=== PATIENT | male | born 1960 | race Caucasian/White ===

== ENCOUNTER 2016-09-04 17:08 | Emergency (ER) | payer OTHER ==
[2016-09-04 17:26] VITALS: BP 125/84
--- NOTE | 2016-09-04 17:30 | UC ---
Skin Complaint HPI - History of Current Complaint Stated Complaint: SKIN COMPLAINT Hx Obtained From: Patient Onset/Duration: Sudden Onset - Father diagnosed with scabies, has been in close contact. Would like to be treated., Lasting Weeks - 3 Current Severity: None - doesn't have any symptoms. Aggravating: Nothing Alleviating: Nothing Associated Signs & Symptoms: Positive: Negative Related History: Other: - exposure to scabies. - Allergy/Home Medications Allergies/Adverse Reactions: Allergies Allergy/AdvReac Type Severity Reaction Status Date / Time No Known Allergies Allergy Verified 06/13/15 19:04 Review of Systems All Other Systems Reviewed And Are Negative: Yes PMH/Surg Hx/FS Hx/Imm Hx Previously Healthy: Yes - Surgical History Surgical History: Yes Surgery Procedure, Year, and Place: VASECTOMY - Family History Known Family History: Positive: Hypertension Negative: Cardiac Disease, Diabetes - Social History Occupation: Employed Full-time Lives: With Family Alcohol Use: Occasionally Substance Use Type: None Smoking Status (MU): Light Every Day Tobacco Smoker Type: Cigarettes Amount Used/How Often: 1/2 ppd Length of Time of Smoking/Using Tobacco: quit 5 days ago Household Exposure Type: Cigarettes Cessation Counseling: Patient Advised to Stop - Immunization History Most Recent Influenza Vaccination: [id number] Most Recent Tetanus Shot: OVER 5 YEARS AGO Physical Exam Triage Information Reviewed: Yes Appearance: Well-Appearing, No Pain Distress, Well-Nourished Vital Signs Reviewed: Yes Eyes: Positive: Conjunctiva Clear ENT: Positive: Pharynx normal, TMs normal Dental Exam: Normal Neck exam: Normal Respiratory Exam: Normal Cardiovascular Exam: Normal Musculoskeletal Exam: Normal Neurological Exam: Normal Psychological Exam: Normal Skin Exam: Normal Course/Dx - Differential Diagnoses - Skin Complaint Differential Diagnoses: Eczema, Scabies, Tick Born Illness - Diagnoses Provider Diagnoses: Scabies exposure. Discharge - Discharge Plan Condition: Stable Disposition: HOME Prescriptions: Permethrin [Elimite] 5 % TOPICAL BEDTIME #120 gm Patient Education Materials: Scabies (ED), Permethrin (On the skin)
== END 2016-09-04 17:51 | disposition home or self-care (01) ==
LOC: UCCORT 17:08
DX: B86 Scabies (principal); F17.210 Nicotine dependence, cigarettes, uncomplicated
CPT/HCPCS: 99212; G0463

== ENCOUNTER 2016-11-15 08:29 | Day surgery (SDC) | payer OTHER ==
[~2016-11-15 08:29] MED LIST: Buffered Lidocaine 0.9% SYRIN* 5 ML/SYR SYRINGE INTRADERM ONE; Dexamethasone IV* 4 MG/ML 1 ML (4 MG) ONE; Famotidine IV* 10 MG/ML 2 ML (20 mg) IV ONE; Ketorolac INJ* 30 MG/ML 1 ML VIAL ONE; Lidocaine 2% PF * 5 ML VIAL ONE; Midazolam* 1 MG/ML 5 ML VIAL (5 MG) ONE; Ondansetron INJ* 2 MG/ML VIAL ONE; Propofol* 10 MG/ML 20 ML BTL IV PUSH ONE; fentaNYL* 50 MCG/ML 2 ML VIAL (100 MCG VIAL) ONE
[2016-11-15] MEDS ORDERED: fentaNYL* 50 MCG/ML 2 ML VIAL (100 MCG VIAL) ONE (08:40)
[2016-11-15] MEDS ORDERED: Famotidine IV* 10 MG/ML 2 ML (20 mg) ONE (08:57)
[2016-11-15] MEDS ORDERED: ceFAZolin 2 GM PREMIX (*) 50 ML IVPB ONE (08:57)
[2016-11-15] MEDS ORDERED: Buffered Lidocaine 0.9% SYRIN* 5 ML/SYR SYRINGE ONE (08:58)
[2016-11-15] MEDS ORDERED: Succinylcholine* 20 MG/ML 10 ML VIAL ONE (10:30)
[2016-11-15] MEDS ORDERED: Bupivacaine 0.25% SDV* 30 ML ONE (10:50)
[2016-11-15] MEDS ORDERED: Rocuronium* 10 MG/ML VIAL ONE (10:58)
[2016-11-15] MEDS ORDERED: Labetalol IV* 5 MG/ML 20 ML VIAL ONE (11:55)
[2016-11-15] MEDS ORDERED: DiMENhydriNATE IV* 50 MG/ML VIAL IV PUSH PRN (12:22)
[2016-11-15] MEDS ORDERED: HYDROmorphone* 1 MG/ML 1 ML CARPUJECT IV PRN (12:22)
[2016-11-15] MEDS ORDERED: oxyCODONE TAB* 5 MG TAB PO PRN (12:22)
[2016-11-15] MEDS ORDERED: Acetaminophen TAB* 325 MG PO PRN (12:22)
[2016-11-15] MEDS ORDERED: Labetalol IV* 5 MG/ML 20 ML VIAL IV PUSH PRN (12:23)
[2016-11-15] MEDS ORDERED: oxyCODONE/Acetamin 5/325 MG* TAB PO PRN (13:12)
[2016-11-15] MEDS ORDERED: Acetaminophen TAB* 325 MG ONE (14:56)
[2016-11-15 15:01] VITALS: BP 120/76
--- NOTE | 2016-11-16 13:22 | OP ---
CC: Fermin Bullard MD * DATE OF OPERATION: 11/15/16 - [facility] DATE OF : 56 SURGEON: Chivo Johnson MD SALESPERSON PIANOS AND ORGANS: SANDRA Eaton ANESTHESIOLOGIST: Precious Bazzi MD ANESTHESIA: General with local anesthesia. PRE-OP DIAGNOSIS: Bilateral inguinal hernias. POST-OP DIAGNOSIS: Bilateral direct inguinal hernias. OPERATIVE PROCEDURE: Totally extraperitoneal repair with mesh of bilateral direct inguinal hernias. ESTIMATED BLOOD LOSS: Minimal. SPECIMENS: None. COMPLICATIONS: None. WOUND CLASSIFICATION: 1. DESCRIPTION OF PROCEDURE: Written informed consent was obtained, and preoperative antibiotics were administered. Both groins were marked with indelible ink as well as initialed. The patient was taken to the operating room , placed in the supine position. Sequential compression devices and warming blanket and general anesthesia was administered. A Bower catheter was inserted. The abdomen and both groins were prepped and draped in the usual sterile fashion. Time-out verification was completed. Initially, a small transverse incision was made just to the right of midline below the umbilicus, carried down to the anterior rectus sheath on the right and the rectus muscle was identified and retracted laterally. The space just anterior to the rectus sheath was developed digitally and the Spacemaker balloon was inserted without difficulty down in the midline to the pubic tubercle. The Spacemaker balloon was then inflated with almost 20 squeezes of the bulb to develop the preperitoneal space without difficulty. The Spacemaker balloon was then removed and a 12 mm blunt port was inserted and the preperitoneal space was insufflated to 12 mmHg and the patient was placed in the Trendelenburg position. Two 5-mm ports were placed in the midline several fingerbreadths below the initial blunt port. The pubic tubercle and the Parker's ligament were identified and dissected on either side. Initially dissection commenced on the right side, I was able to identity the epigastric vessels as they ran anterior and on to the abdominal wall. The space lateral to the indirect ring was developed under the anterior abdominal wall out to the iliac crest. The iliopubic tract was identified. I was able to identify the peritoneal reflection laterally, followed this medially. There did not appear to be in an indirect inguinal hernia and the peritoneum was reflected cranially lateral to medially. The spermatic cords and the vas deferens were identified and protected from injury. It appeared that there was a direct space hernia just medial to the epigastric vessels and this was reduced without difficulty. The peritoneum was reflected back down in a similar fashion. Likewise, similar dissection on the left was commenced identifying the Parker's ligament, the epigastric vessels and thus developing the space laterally out to the iliac crest identifying the iliopubic tract and anterior abdominal wall. Similar to the right side, there was the peritoneal reflection identified laterally, it did not appear to be an indirect hernia and this was reflected back more along the retroperitoneum. Once again, there appeared to be a direct space hernia and the small sac was reduced down on to the floor of the retroperitoneum. Once I felt both dissections were adequate, a large mesh was placed initially on the right side. The large size preformed mesh was then placed on the right side and using the CapSure device, was tagged to the Parker's ligament medially and once on to the anterior abdominal wall to the left and the right of the epigastric vessels. The mesh sat nicely, it was secured to prevent any reflection of the peritoneum underneath, especially along the retroperitoneum, but covered the direct and indirect spaces nicely. Likewise, on the left side the preformed large mesh was then placed and was tacked to the Coopers' ligament, the anterior abdominal wall once medial and once lateral to the epigastric vessels and the mesh extended out towards the iliac crest nicely without wrinkling. Once this was complete, we were able to hold the mesh in place and the insufflation was released. Peritoneum seemed to come over nicely, it covered all the mesh without wrinkling. The ports were then removed. The anterior fascia was closed with interrupted 0 - Polysorb suture. All three incisions were closed with subcuticular 4-0 Polysorb suture. Steri-strips were applied. The patient tolerated the procedure well and was taken to the recovery room in stable condition. [id number]/[facility] #: [id number] [facility]ITALSnow
== END 2016-11-15 15:28 | disposition home or self-care (01) ==
LOC: OR 08:29
PROVIDERS: ATTEND Surgery
DX: K40.20 Bilateral inguinal hernia, without obstruction or gangrene, not specified as recurrent (principal); G25.81 Restless legs syndrome; Z85.828 Personal history of other malignant neoplasm of skin; Z87.891 Personal history of nicotine dependence
CPT/HCPCS: A9270-GY; C1776; C1781; J0330; J0690; J1100; J1885; J2250; J2405; J2704; J3010

== ENCOUNTER 2016-11-17 16:56 | Emergency (ER) | payer OTHER ==
[2016-11-17 18:25] VITALS: BP 146/91
--- NOTE | 2016-11-17 18:36 | UC ---
Complaint Male HPI - HPI Summary HPI Summary: he had hernia surgery two days ago by Dr. Johnson. He had harris placed. He had immediate burning and bleeding after harris was removed. he has had dysuria ever since. No fever, vomiting or back pain. he is passing gas and stool and has been able to eat. there is penile swelling and tenderness as well. 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 Negative: Diaphoresis, Back Pain, Constipation, Blood in Stool, Rectal Pain, Appetite, Nausea - Allergies/Home Medications Allergies/Adverse Reactions: Allergies Allergy/AdvReac Type Severity Reaction Status Date / Time No Known Allergies Allergy Verified 11/17/16 18:15 PMH/Surg Hx/FS Hx/Imm Hx Previously Healthy: No - hernia. - Surgical History Surgical History: Yes Surgery Procedure, Year, and Place: VASECTOMY. Double hernia surgery 11/15/16 - Family History Known Family History: Positive: Hypertension Negative: Cardiac Disease, Diabetes - Social History Lives: With Family Alcohol Use: Rare Alcohol Amount: 2 BEERS/MONTH Substance Use Type: None Smoking Status (MU): Light Every Day Tobacco Smoker Type: Cigarettes Amount Used/How Often: 1/2 PPD FOR 40 + YRS Length of Time of Smoking/Using Tobacco: 40+ YRS Have You Smoked in the Last Year: Yes When Did the Patient Quit Smoking/Using Tobacco: APR 2016 Household Exposure Type: Cigarettes - Immunization History Most Recent Influenza Vaccination: NONE 2017 Most Recent Tetanus Shot: UTD Review of Systems Gastrointestinal: Abdominal Pain Genitourinary: Dysuria, Hematuria All Other Systems Reviewed And Are Negative: Yes Physical Exam Triage Information Reviewed: Yes Appearance: Well-Appearing, No Pain Distress, Well-Nourished Vital Signs: Initial Vital Signs Temp 98 F 11/17/16 18:16 Pulse 60 11/17/16 18:16 Resp 18 11/17/16 18:16 BP 146/91 11/17/16 18:16 Pulse Ox 100 11/17/16 18:16 Vital Signs Reviewed: Yes Eye Exam: Normal ENT Exam: Normal Neck exam: Normal Respiratory Exam: Normal Cardiovascular Exam: Normal Abdominal Exam: Other - wounds clean dry and intact. abd softly distended. Penis shaft right side is bruised and tender and swollen. No testicular involvement. Musculoskeletal Exam: Normal Neurological Exam: Normal Psychological Exam: Normal Skin Exam: Normal Complaint Male Course/Dx - Course Course Of Treatment: traumatic harris insertion. he has had dysuria ever since the harris was removed. we will start cipro but this may not be infectious. possible false lumen created during catheterization. referal to urology provided. - Differential Dx/Diagnosis Differential Diagnosis/HQI/PQRI: Epididymitis, Priaprism, Paraphimosis, Prostatitis, Pyelonephritis, Testicular Torsion, Trauma, Ureteral Calculi, Urinary Tract Infection Provider Diagnoses: traumatic harris insertion. post op complication. hematuria. dysuria. Discharge - Discharge Plan Condition: Good Disposition: HOME Prescriptions: Ciprofloxacin TAB* [Cipro 500 MG TAB*] 500 mg PO BID #14 tab Referrals: Carmine Dey MD [Medical Doctor] -
--- NOTE | 2016-11-19 08:38 | UC ---
Progress - Progress Note Progress Note: neg urine culture stop cipro ensure urology f/u
== END 2016-11-17 18:49 | disposition home or self-care (01) ==
LOC: UCCORT 16:56
DX: T83.098A Other mechanical complication of other urinary catheter, initial encounter (principal); N99.89 Other postprocedural complications and disorders of genitourinary system; R30.0 Dysuria; R31.9 Hematuria, unspecified; F17.210 Nicotine dependence, cigarettes, uncomplicated
CPT/HCPCS: 81003; 87086; 99212; G0463

== ENCOUNTER 2017-08-25 15:00 | Inpatient (IN) | payer OTHER ==
--- NOTE | 2017-08-22 16:43 | HP ---
HISTORY AND PHYSICAL: DATE OF ADMISSION/SURGERY: 09/01/17 SURGEON: Jewell Mayorga MD * (DICTATED BY SANDRA BONILLA) PROCEDURE: Right total hip arthroplasty. CHIEF COMPLAINT: Right hip pain. HISTORY OF PRESENT ILLNESS: Mr. Alva is a 57-year-old gentleman with continued complaints of right hip pain. He has failed conservative management and elected to proceed with a right total hip arthroplasty, which is scheduled for 09/01/[address] Mayorga. PAST MEDICAL HISTORY: Basal cell carcinoma, restless leg syndrome. PAST SURGICAL HISTORY: Hernia repair. CURRENT MEDICATIONS: 1. Ropinirole 1 mg 1 to 2 tabs every evening. 2. Ibuprofen and Tylenol as needed. 3. Nicotine patch. ALLERGIES: None. FAMILY HISTORY: Cancer, blood clots and hypertension. SOCIAL HISTORY: He is a 57-year-old gentleman who lives with his . He smokes less than a pack a day. He uses occasional alcohol. Denies use of illicit drugs. REVIEW OF SYSTEMS: A complete 14-point review of systems was reviewed with the patient, it was all negative or noncontributory. PHYSICAL EXAMINATION GENERAL: He is well developed, well nourished, in no acute distress. VITAL SIGNS: He stands 67 inches tall, weighs 177 pounds. His blood pressure is 122/74, his heart rate is 76. HEENT: Normocephalic, atraumatic. NECK: Supple. No palpable lymph nodes. PULMONARY: Lungs are clear to auscultation bilaterally. CARDIO: Regular rate and rhythm. Strong S1, S2. ABDOMEN: Soft, nontender, nondistended. NEUROLOGICAL: He is alert and oriented x3. MUSCULOSKELETAL: Right lower extremity: The skin is intact. There are no open wounds or abrasions. He walks with an antalgic type gait favoring his right hip. He has decreased internal and external rotation of the right hip. 2 + dorsalis pedis pulses. Intact sensation and his lower extremity muscle group strengths are intact at 5/5. ASSESSMENT/PLAN: Mr. Alva is a 57-year-old gentleman with complaints of right hip pain secondary to end-stage osteoarthritis. He has failed conservative management and elected to proceed with a right total hip arthroplasty which is scheduled for 09/01/[address] Mayorga discussed the risks and benefits of the surgery at today's visit and all of his questions were answered. He will follow up with Dr. Mayorga 2 weeks after the surgery. SANDRA BONILLA [id number]/[facility] #: [id number] MTDSnow
[2017-08-31] MEDS ORDERED: Buffered Lidocaine 0.9% SYRIN* 5 ML/SYR SYRINGE INTRADERM ONE (10:23)
[2017-09-01] MEDS ORDERED: Ondansetron ODT TAB* 4 MG PO ONE (00:01)
[2017-09-01] MEDS ORDERED: Dexamethasone IV* 4 MG/ML 1 ML (4 MG) IV SLOW PU ONE (06:00)
[2017-09-01] MEDS ORDERED: Famotidine IV* 10 MG/ML 2 ML (20 mg) IV ONE (06:00)
[2017-09-01] MEDS ORDERED: Gabapentin CAP(*) 300 MG PO ONE (06:00)
[2017-09-01] MEDS ORDERED: celeCOXIB CAP* 200 MG PO ONE (06:00)
[2017-09-01] MEDS ORDERED: Acetaminophen IV 1GM/100ML * 1,000 MG/100 ML VIAL IVPB ONE (06:00)
--- OUTSIDE RECORDS SUMMARY | 2017-09-01 07:41 | XMS REPORT ---
:1960 External Reference #:[id number] Author Organization [facility] Address [address] [place] [address] Phone [phone] Care Team Providers Name Role Phone Fermin Bullard MD Primary Care Physician Unavailable Payers Type Date Identification Numbers Payment Provider Subscriber Commercial Expires: Policy Number: [id number] [employer]Yue Oneill 2014 PayID: [employer] [address] [place] [address] Commercial Policy Number: [id number] Lifetime Benefit Alicia One[employer] Group Number: [id number] [address] PayID: [place] [address] Problems Date Description Provider Status Onset: 07/07/2015 Basal cell carcinoma of skin of Rio Mack M.D. Active other parts of face Onset: 09/11/2015 Arthralgia of the pelvic region and Alixu MD Martín Active thigh Onset: 09/11/2015 Knee pain Akbar Resendiz MD Active Onset: 07/22/2017 Localized, primary osteoarthritis Jewell Mayorga M.D. Active of the pelvic region and thigh Onset: 07/25/2017 Hypertrophic condition of skin Rio Mack M.D. 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 No Do you have problems with snoring, day time fatigue? Snoring Allergies, Adverse Reactions, Alerts Date Description Reaction Status Severity Comments 06/10/2017 NKDA active Medications Medication Date Status Form Strength Qnty SIG Indications Ordering Provider Ropinirole Active Tablets 1mg take 1 Unknown HCL 000 and 1/2 to 2 tablets every evening Ibuprofen Active Tablets 200mg 4 tabs as Unknown 000 needed Tylenol Extra Active Tablets 500mg 2 by Unknown Strength 000 mouth as needed Does Not Know Hx Rio Costa 015 - Ruparelia, Medications. M.D. 016 Piroxicam Hx Capsules 20mg 30caps one 843.9 Gilbert 013 - capsule Veigel, po daily M.D. 015 with food Chantix Hx Tablets 1mg 60tabs 1 po bid Unknown Continuing 000 - Month Magen 015 Chantix 0 Hx Tablets 1mg 1 by Unknown 000 mouth twice a day Tylenol Hx Capsules 325mg 2 tablets Unknown 000 - every 4 hours as 018 needed for pain Nicotine Step Hx Patches 21mg/24HR 1 topical Unknown 1 000 - 24HR every day for 4-6 018 wks then taper (patient is cutting patch in half) Medications Administered in Office Medication Date Status Form Strength Qnty SIG Indications Ordering Provider Inj, Administered Injection Denilson S. Regadenoson, 018 Carrera, DO 0.1 MG FACC Technetium TC Administered Injection Denilson S. 99M 018 Carrera, DO Tetrofosmin, FACC Per Unit Dose Up To 40 Millicuries Vital Signs Date Vital Result Comment 08/22/2017 Height 67 inches 5'7" Weight 177.00 lb BP Systolic Sitting 122 mmHg BP Diastolic Sitting 74 mmHg Respiratory Rate 16 /min Body Temperature 98.0 F Pain Level 5 BMI (Body Mass Index) 27.7 kg/m2 07/25/2017 Height 67 inches 5'7" Weight 177.00 lb BP Systolic Sitting 128 mmHg BP Diastolic Sitting 68 mmHg Respiratory Rate 16 /min Pain Level 0 BMI (Body Mass Index) 27.7 kg/m2 07/22/2017 Height 67 inches 5'7" Weight 176.00 lb Heart Rate 85 /min BP Systolic Sitting 134 mmHg BP Diastolic Sitting 80 mmHg Respiratory Rate 16 /min Body Temperature 98.0 F Pain Level 6 BMI (Body Mass Index) 27.6 kg/m2 06/10/2017 Heart Rate 72 /min BP Systolic Sitting 130 mmHg BP Diastolic Sitting 84 mmHg Respiratory Rate 18 /min Body Temperature 97.5 F 05/17/2017 Weight 176.19 lb No shoes BP Systolic 120 mmHg Rue reg cuff BP Diastolic 70 mmHg Rue reg cuff BP Systolic Sitting 135 mmHg Lue reg cuff BP Diastolic Sitting 80 mmHg Lue reg cuff Respiratory Rate 14 /min 11/23/2016 Heart Rate 66 /min BP Systolic 126 mmHg BP Diastolic 82 mmHg Respiratory Rate 16 /min Body Temperature 97.3 F 10/26/2016 Height 67 inches 5'7" Weight 167.00 lb Heart Rate 68 /min BP Systolic 120 mmHg BP Diastolic 78 mmHg Respiratory Rate 16 /min Body Temperature 96.1 F BMI (Body Mass Index) 26.2 kg/m2 11/24/2015 Height 67 inches 5'7" Weight 165.00 lb BP Systolic Sitting 124 mmHg BP Diastolic Sitting 78 mmHg BMI (Body Mass Index) 25.8 kg/m2 09/11/2015 Height 67 inches 5'7" Weight 170.00 lb Heart Rate 84 /min BP Systolic Sitting 120 mmHg BP Diastolic Sitting 84 mmHg BMI (Body Mass Index) 26.6 kg/m2 07/07/2015 Heart Rate 80 /min BP Systolic Sitting 124 mmHg BP Diastolic Sitting 80 mmHg 10/14/2014 Weight 177.00 lb Heart Rate 80 /min BP Systolic Sitting 136 mmHg BP Diastolic Sitting 80 mmHg 04/27/2012 Height 67 inches 5'7" Weight 175.00 lb BP Systolic Sitting 112 mmHg BP Diastolic Sitting 76 mmHg BMI (Body Mass Index) 27.4 kg/m2 Results Test Date Test Result H/L Range Note Laboratory test 07/14/2015 Surgical Pathology SEE RESULT BELOW 1 finding 1 SEE RESULT BELOW Name: JAYDEN ALVA : [address]: Rio Mack MD Acct: [id number] Unit: [id number] AGE: 55 Location: [facility] Re07/14/15 SEX: M Status: REG REF SPEC: [id number] YOAN: 07/14/15-1515 [facility] [address]: Rio Mack MD REQ: [id number] RECD: 07/14/15 STATUS: SOUT _ ORDERED: LEVEL IV FINAL DIAGNOSIS Skin, left cheek, excision: -- Basal cell carcinoma, superficial and nodular type. -- Deep, tip, and lateral margins are clear. PRE-OPERATIVE DIAGNOSIS Basal cell carcinoma GROSS DESCRIPTION The specimen is received in formalin with no source identified and a requisition labeled, Left Cheek Lesion, and consists of a 2.6 x 1.3 cm hunter hairbearing unoriented skin ellipse excised to a depth of 0.3 cm. The specimen is inked, serially sectioned and entirely submitted in cassettes A through C to include ellipse ends in cassette A. Signed (signature on file) Fanny Brown MD 1348 END OF REPORT * ML=Testing performed at Main Lab DEPARTMENT OF PATHOLOGY, [address] [place] [address] Haroon Ahuja M.D. Director [facility] # [id number] Procedures Date CPT Code Description Status 05/25/2017 92441 Stress Test Completed 05/25/2017 35918 Myocardial Perfusion Imaging Tomographic (Spect) Completed Multiple Studies 05/17/2017 60772 EKG Tracing & Interpretation Completed 11/15/2016 78963 Laparoscopy, Surgical Repair Initial Inguinal Hernia Completed 11/15/2016 10823 Laparoscopy, Surgical Repair Initial Inguinal Hernia Completed 07/14/2015 01189 Excise Malig Lesion > 4CM Face/Ear/Eyelid/Nose/Lip Completed Encounters Type Date Location Provider CPT E/M Dx Office Visit 07/25/2017 [facility], [address]28 L91.9 2:15p AT [facility] Office Visit 07/22/2017 [facility] Jewell Mayorga M.D. 33013 M16.11 2:00p [facility] M25.551 M25.552 M16.12 Office Visit 06/10/2017 1:45p [facility] Chivo Johnson, 01915 R10.31 Of [facility] R10.32 Office Visit 05/17/2017 9:00a [facility] [place] [address] R07.9 [facility] FACC F17.201 Office Visit 10/26/2016 8:30a [facility] Chivo Johnson, 56379 K40.20 Of [facility] LEAL Office Visit 11/24/2015 3:45p [facility] Rio Mack, 95037 C44.[address] [facility] Office Visit 09/11/2015 3:15p [facility] [place] [address] M25.551 Communications Officer AT [facility] M25.561 Office Visit 07/07/2015 4:00p [facility], 38357 C44.[address] [facility] Office Visit 10/14/2014 3:30p [facility], 70638 173.[address] [facility] [address] [facility] Office Visit 04/27/2012 3:30p [facility] Gutierrez M.D. 75127 843.9 [facility] AT [facility] Plan of Care Future Appointment(s):09/14/2017 8:45 am - Jewell Mayorga M.D. at [facility]09/01/2017 10:30 am - Sundar Macedo PA-C at [facility]09/01/2017 10:30 am - SANDRA Suero at [facility]09/01/2017 10:30 am - Jewell Mayorga M.D. at [facility]08/22/2017 - Jewell Mayorga M.D.L91.9 Hypertrophic disorder of the skin, unspecifiedFollow up:Follow up: 2 weeks after icjxuxgV78.551 Pain in right hip
[2017-09-01] MEDS ORDERED: Dexamethasone IV* 4 MG/ML 1 ML (4 MG) ONE (08:08)
[2017-09-01] MEDS ORDERED: celeCOXIB CAP* 100 MG ONE (08:09)
[2017-09-01] MEDS ORDERED: Ondansetron ODT TAB* 4 MG ONE (08:09)
[2017-09-01] MEDS ORDERED: Gabapentin CAP(*) 300 MG ONE (08:09)
[2017-09-01] MEDS ORDERED: ceFAZolin 2 GM PREMIX (*) 2 GM/50 ML BAG IVPB ONE (08:09)
[2017-09-01] MEDS ORDERED: Famotidine IV* 10 MG/ML 2 ML (20 mg) ONE (08:09)
[2017-09-01] MEDS ORDERED: Acetaminophen IV 1GM/100ML * 100 ML ONE (08:13)
[2017-09-01] MEDS ORDERED: Levalbuterol 0.63MG/3ML NEB* UNIT OF USE INH ONE ×2 (08:59→09:09)
[2017-09-01] MEDS ORDERED: ROPIVACAINE 5 MG/ML 30 ML BTL (0.5%) ONE (09:03)
[2017-09-01] MEDS ORDERED: Midazolam* 1 MG/ML 5 ML VIAL (5 MG) ONE ×2 (09:06→09:59)
[2017-09-01] MEDS ORDERED: fentaNYL* 50 MCG/ML 2 ML VIAL (100 MCG VIAL) ONE (09:06)
[2017-09-01] MEDS ORDERED: Bupivacaine 0.5% PF 10 ML VIAL INJ ONE (09:06)
[2017-09-01] MEDS ORDERED: Lidocaine 2% PF * 5 ML VIAL ONE (09:06)
[2017-09-01] MEDS ORDERED: Ropivacaine (OR use only) 2 MG/ML 10 ML ONE (09:19)
[2017-09-01] MEDS ORDERED: Ondansetron ODT TAB* 4 MG PO PRN (10:32)
[2017-09-01] MEDS ORDERED: DiMENhydriNATE IV* 50 MG/ML VIAL IV PUSH PRN (10:32)
[2017-09-01] MEDS ORDERED: Naloxone* 0.4 MG/ML 1 ML VIAL IV PRN (10:32)
[2017-09-01] MEDS ORDERED: HYDROmorphone INJ* 0.5 MG/0.5 ML SYRINGE IV PRN (10:32)
[2017-09-01] MEDS ORDERED: fentaNYL* 50 MCG/ML 2 ML VIAL (100 MCG VIAL) IV PRN (10:32)
[2017-09-01] MEDS ORDERED: oxyCODONE TAB* 5 MG TAB PO PRN (12:17)
[2017-09-01] MEDS ORDERED: Polyethylene Glycol 3350* 17 GM PACKET PO PRN (12:17)
[2017-09-01] MEDS ORDERED: Ondansetron INJ* 2 MG/ML VIAL IV PRN (12:17)
[2017-09-01] MEDS ORDERED: Cyclobenzaprine TAB* 10 MG PO PRN (12:17)
[2017-09-01] MEDS ORDERED: Magnesium Hydroxide LIQ* 30 ML UDC PO PRN (12:17)
[2017-09-01] MEDS ORDERED: diPHENhydraMINE IV* 50 MG/ML 1 ml VIAL (BENADRYL) IV PRN (12:17)
[2017-09-01] MEDS ORDERED: Morphine VIAL* 4 MG/ML VIAL (1 ml vial) IV PRN (12:17)
[2017-09-01] MEDS ORDERED: Acetaminophen TAB* 325 MG PO PRN (12:17)
[2017-09-01] MEDS ORDERED: Bisacodyl SUPP* 10 MG SUPP PR PRN (12:17)
--- NOTE | 2017-09-01 13:00 | RAD ---
INDICATION: Right hip arthroplasty COMPARISON: Right hip September 01, 2017 TECHNIQUE: A single supine view the pelvis is submitted FINDINGS: There is right hip arthroplasty. Both femoral and acetabular components are well seated. Advanced osteoarthritis about the left hip with mild deformity is again noted. IMPRESSION: THE RIGHT HIP PROSTHESIS APPEARS NORMALLY SEATED.
--- NOTE | 2017-09-01 13:05 | RAD ---
Indication: Postop RIGHT total hip replacement Comparison: Intraoperative exam of the same date. Technique: Supine AP pelvis and proximal femurs and dedicated AP and crosstable lateral views RIGHT hip. Report: RIGHT total hip prosthesis in place with anatomic alignment. No periprosthetic fracture evident. Overlying soft tissue edema and subcutaneous emphysema. Severe osteoarthritis of the LEFT hip noted. Surgical clips reflecting previous ventral hernia repair and vasectomy noted. IMPRESSION: #. Unremarkable immediate postop appearance of the RIGHT total hip replacement.
--- NOTE | 2017-09-01 15:08 | RAD ---
Indication: Right hip replacement. Single view of the right hip demonstrates intraoperative control film demonstrates femoral reamer and acetabular cup in place. IMPRESSION: Intraoperative control films for right hip replacement.
[2017-09-01] MEDS: Nicotine PATCH 21 MG/24 HR* PATCH TRANSDERM SCH (16:48)
[2017-09-01] MEDS: oxyCODONE/Acetamin 5/325 MG* TAB PO PRN ×2 (16:55→23:42)
[2017-09-01] MEDS ORDERED: Warfarin TAB(*) 6 MG PO ONE (17:00)
[2017-09-01] MEDS ORDERED: ROPINIROLE HCL PO SCH (18:00)
[2017-09-01] MEDS: ceFAZolin 1 GM in Dextrose (*) 1 GM/50 ML BAG IVPB SCH (18:26)
[2017-09-01] MEDS: Docusate CAP* 100 MG PO SCH (20:48)
[2017-09-01] MEDS: Ropinirole TAB* 0.5 MG TAB PO SCH (20:48)
[2017-09-01] MEDS: Magnesium Hydroxide LIQ* 30 ML UDC PO SCH (20:49)
[2017-09-01] MEDS: Nicotine Patch Removal NOTE PATCH OFF SCH (20:50)
[2017-09-02] MEDS: ceFAZolin 1 GM in Dextrose (*) 1 GM/50 ML BAG IVPB SCH ×2 (02:37→10:06)
--- NOTE | 2017-09-02 04:12 | OP ---
DATE OF OPERATION: 09/01/17 - ROOM #350 DATE OF : 56 SURGEON: Jewell Mayorga MD BANK CLERK: SANDRA Russell. Mr. Macedo did help throughout the procedure with preparation of the leg, wound retraction, manipulation of the hip, and wound closure. ANESTHESIOLOGIST: Dr. Treviño. ANESTHESIA: Spinal. PRE-OP DIAGNOSIS: Severe end-stage degenerative osteoarthritis of the right hip joint. POST-OP DIAGNOSIS: Severe end-stage degenerative osteoarthritis of the right hip joint. OPERATIVE PROCEDURE: Right total hip arthroplasty. BRIEF HISTORY/INDICATION: Mr. Alva is a 57-year-old gentleman with years of increasingly severe right hip pain. He failed conservative treatment with anti-inflammatories, pain medication, and physical therapy. Radiographs showed bone-on- bone arthritis. Due to continued pain and decreased quality of life, he elected to undergo right total hip arthroplasty. Informed consent was obtained from the patient. He understood the risks of surgery included but were not limited to bleeding, infection, damage to nearby structures, continued pain, need for further surgery, intraoperative fracture, nerve palsy, hardware failure or loosening, dislocation, leg length discrepancy, stroke, heart attack , blood clot, and . He wished to proceed. INTRAOPERATIVE FINDINGS: Intraoperatively, the patient was noted to have severe end-stage arthritis with significant osteophyte formation. He had full- thickness loss of cartilage in the femoral head and acetabulum. He had extensive loose bodies in the hip capsule and joint. COMPLICATIONS: None. ESTIMATED BLOOD LOSS: 200 cc. SPECIMENS: Femoral head and acetabular reaming sent to Pathology. HARDWARE USED: This is uncemented Melvin total hip hardware. For the cup, a Tritanium hemispherical cluster hole shell 58F, single 20-mm torque 6.5 cancellous bone screw. For the liner, a Trident X3 0-degree polyethylene insert 40F. For the stem, an Accolade TMZF size 4 with a 127-degree neck. For the head, a Biolox delta ceramic V40, 40 -2.5 head. DESCRIPTION OF PROCEDURE: Mr. Alva was identified in the preanesthesia unit. His right lower extremity was marked as the correct operative side. Informed consent was signed and placed in the chart. The patient was taken to the operating room and placed under spinal anesthesia. A Bower catheter was placed. The patient was placed in the left lateral decubitus position on the peg board. All bony prominences were well-padded. Right lower extremity was prepped and draped in the usual sterile fashion. Preop time-out was made to correctly identify the patient's side and site. Appropriate perioperative antibiotics were given within 1 hour of incision. A 12-cm posterior hip incision was made with a 10-blade and carried down to the lateral fascial layer. A new 10-blade was used to make an incision in the lateral fascial layer. Charnley retractor was placed. The piriformis and conjoint tendons were visualized and elevated off the posterolateral femur using electrocautery. Electrocautery was then used to make a standard posterolateral capsular flap and this was also tagged with #5 Ethibond. The hip was carefully dislocated. Lesser troch to the center of the femoral head measured 62 mm. Oscillating saw was used to make the appropriate femoral neck cut. The femoral head was carefully removed. The femur was retracted anteriorly. After appropriate placement of retractors, the acetabulum was well visualized. A long-handled knife was used to sharply remove any remaining labrum from the acetabular rim. The acetabulum was sequentially reamed up to a size 57. A 57 reamer established to the subchondral bleeding bone bed. A 57 trial had good fit. Final implant chosen was a Tritanium cluster hole shell 58F. This was impacted into the acetabulum without any difficulty. The shell was noted to be excellent with satisfactory anteversion and abduction angle. The 20-mm torque cancellous bone screw was placed in the supero-posterior quadrant for extra stability. Liner chosen was a Trident X3 0-degree polyethylene insert 40F. This was impacted into the acetabulum without difficulty. Stability of the liner was checked and rechecked and noted to be stable. Next, attention was turned to preparation of the femoral canal. A canal finder was used to enter the proximal femur. Proximal femoral canal was broached sequentially up to a size 4. Size 4 broach had excellent fit and appropriate anteversion. A 127 neck trial was chosen as well as the 40 +0 head trial. Lesser troch to the center of the femoral head measured 55 mm; therefore, a - 2.5 head trial was chosen. Lesser troch to the center of the femoral head measured approximately 63 mm. The hip was reduced and taken through a range of motion. The hip was stable in all positions. There was appropriate soft tissue tension and leg length. The hip was dislocated. All trials were carefully removed. Final implant chosen was an Accolade TMZF size 4 with a 127-degree neck angle. A 40 -2.5 Biolox delta ceramic femoral head with a -2.5 adaptor sleeve was impacted on to the femoral neck. Lesser troch to the center of the femoral head final measurement was 63 mm. The hip was reduced and taken through a range of motion. The hip was stable in all positions. There was good soft tissue tension and appropriate leg length. The hip was copiously irrigated with sterile saline. Previously tagged capsule and tendons were reapproximated to the posterolateral femur through two trochanteric drill holes. The lateral fascial layer was closed using interrupted #1 Vicryls. The rest of the incision was closed in a layered fashion using 0 and 2-0 Vicryls. Skin was closed using running 3-0 Monocryl suture and Dermabond. Sterile Adaptic, 4x4s, and paper tape were used to cover the incisions. The patient's anesthesia was reversed without difficulty. He was taken to the PACU in stable condition. Intended weightbearing will be weightbearing as tolerated. Intended DVT prophylaxis will be Coumadin with a Lovenox bridge. [id number]/[facility] #: [id number] MAXINE
[2017-09-02] MEDS: oxyCODONE/Acetamin 5/325 MG* TAB PO PRN ×4 (06:05→20:20)
[2017-09-02 06:07] LABS: Hematocrit 33 % (42-52); Mean Platelet Volume 8.8 um3 (7.4-10.4); Platelet Count 230 10^3/ul (150-450)
[2017-09-02 06:12] LABS: INR 1.04 (0.77-1.02)
[2017-09-02 06:24] LABS: EGFR Non-African American 82.1 (>60)
[2017-09-02] MEDS: Magnesium Hydroxide LIQ* 30 ML UDC PO SCH ×2 (07:56→20:20)
[2017-09-02] MEDS: Docusate CAP* 100 MG PO SCH ×2 (07:56→20:20)
[2017-09-02] MEDS: Nicotine PATCH 21 MG/24 HR* PATCH TRANSDERM SCH (07:57)
[2017-09-02] MEDS: Ropinirole TAB* 0.5 MG TAB PO SCH ×2 (07:57→20:21)
--- NOTE | 2017-09-02 09:11 | PN ---
Progress Note - Progress Note Date of Service: 09/02/17 SOAP: Subjective: Mr. Alva is s/p R MAUDE on 09/01/17 POD #1. Patient sitting comfortable in chair, able to stand on own. Very concerned with being discharged to home as out of town, would like to be in SNF initially. Objective: Vital Signs Temp 98.4 F 09/02/17 07:32 Pulse 73 09/02/17 07:32 Resp 18 09/02/17 07:53 BP 111/60 09/02/17 07:32 Pulse Ox 98 09/02/17 07:32 Intake & Output 09/01/17 09/02/17 09/02/17 18:59 06:59 18:59 Intake Total 2530 1044 Output Total 1900 950 Balance 630 94 Weight 177 lb Intake: IV Fluids 1950 684 ABX - CEFAZOLIN 55 CEFAZOLIN 2GM IV 50 LR 1900 629 Oral 580 360 Output: Bower 1900 950 Laboratory Results - last 24 hr 09/02/17 09/02/17 09/02/17 05:19 05:19 05:19 Hgb 11.0 L Hct 33 L Plt Count 230 MPV 8.8 INR (Anticoag Therapy) 1.04 H Sodium 137 Potassium 4.2 Chloride 108 Carbon Dioxide 26 Anion Gap 3 BUN 14 Creatinine 0.94 Est GFR ( Amer) 99.4 Est GFR (Non-Af Amer) 82.1 BUN/Creatinine Ratio 14.9 Glucose 119 H Calcium 8.5 L General: WN, WD, NAD, AO, able to stand without assistance for dressing inspection. RLE: Dressing C/D/I, no erythema, warmth, swelling proximal or distal to dressing. 2+ DP pulse, +DF/PF. SITLT. Assessment: S/P R MAUDE with Dr. Mayorga on 09/01/17, POD #1 Plan: - Continue PT/OT with hip precautions - DVT Lovenox/Coumadin INR 1.04, 8 mg tonight - D/C to SNF planned for Tuesday - Continue pain management
[2017-09-02] MEDS: Enoxaparin(*) 30 MG/0.3 ML SYR SUBCUT SCH (12:07)
[2017-09-02] MEDS: Nicotine Patch Removal NOTE PATCH OFF SCH (20:27)
[2017-09-03] MEDS: oxyCODONE/Acetamin 5/325 MG* TAB PO PRN ×4 (03:10→20:18)
[2017-09-03 06:05] LABS: Hematocrit 33 % (42-52); Hemoglobin 10.8 g/dl (14.0-18.0); Mean Platelet Volume 9.2 um3 (7.4-10.4); Platelet Count 236 10^3/ul (150-450)
[2017-09-03 06:14] LABS: INR 1.14 (0.77-1.02)
--- NOTE | 2017-09-03 08:31 | PN ---
Progress Note - Progress Note Date of Service: 09/03/17 SOAP: Subjective: POD #2 Right MAUDE, doing well. Pain controlled. Denies CP/SOB, f/c, n/v or calf pain Objective: Vitals: Temp Pulse Resp BP Pulse Ox 97.8 F 97 16 118/70 96 09/03/17 07:48 09/03/17 07:48 09/03/17 07:48 09/03/17 07:48 09/03/17 07:48 Gen: A&Ox3, NAD at rest sitting in chair Right Hip: Incision C/D/I, no ecchymosis or erythema. Thigh soft, minimal ttp. + f/e at ankle and MTPs, N/V intact Labs: Laboratory Results - last 24 hr 18 09/03/17 05:12 05:12 Hgb 10.8 L Hct 33 L Plt Count 236 MPV 9.2 INR (Anticoag Therapy) 1.14 H Assessment: POD #2 Right MAUDE Plan: Pt awaiting placement in [facility] Tuesday Cont PT/OT, posterior hip precautions Lovenox bridge until INR therapeutic Coumadin 8mg tonight
[2017-09-03] MEDS: Nicotine PATCH 21 MG/24 HR* PATCH TRANSDERM SCH (08:32)
[2017-09-03] MEDS: Magnesium Hydroxide LIQ* 30 ML UDC PO SCH ×2 (08:35→20:15)
[2017-09-03] MEDS: Ropinirole TAB* 0.5 MG TAB PO SCH ×2 (08:35→20:18)
[2017-09-03] MEDS: Docusate CAP* 100 MG PO SCH ×2 (08:36→20:18)
[2017-09-03 09:10] LABS: Urine Appearance Clear; Urine Blood Negative (Negative); Urine Color Yellow; Urine Ketones Negative (Negative); Urine Protein Negative (Negative); Urine Specific Gravity 1.014 (1.010-1.030); Urine Urobilinogen Negative (Negative)
[2017-09-03] MEDS: Enoxaparin(*) 30 MG/0.3 ML SYR SUBCUT SCH (12:23)
[2017-09-03] MEDS ORDERED: Warfarin TAB(*) 4 MG PO ONE (17:00)
[2017-09-03] MEDS: Nicotine Patch Removal NOTE PATCH OFF SCH (20:20)
[2017-09-03] MEDS ORDERED: Magnesium Hydroxide LIQ* 30 ML UDC PO PRN (23:00)
[2017-09-04] MEDS: oxyCODONE/Acetamin 5/325 MG* TAB PO PRN ×3 (00:12→20:18)
[2017-09-04 05:45] LABS: Hematocrit 32 % (42-52); Hemoglobin 10.7 g/dl (14.0-18.0); Mean Platelet Volume 8.8 um3 (7.4-10.4); Platelet Count 245 10^3/ul (150-450)
[2017-09-04 05:48] LABS: INR 1.19 (0.77-1.02)
--- NOTE | 2017-09-04 07:53 | PN ---
Progress Note - Progress Note Date of Service: 09/04/17 SOAP: Subjective: POD #3 Right MAUDE. Doing very well, minimal pain. Able to ambulate with walker independently. Denies CP/SOB, calf pain, f/c or n/v. Objective: Vitals: Temp Pulse Resp BP Pulse Ox 98.6 F 88 16 117/76 95 09/04/17 04:19 09/04/17 04:19 09/04/17 04:19 09/04/17 04:19 09/04/17 04:19 Gen: A&Ox3, NAD at rest sitting in chair Right hip: Dressing C/D/I, mild edema to thigh but soft, NT. +f/e at ankles and MTPs, N/V intact Labs: Laboratory Results - last 24 hr 06/18 09/04/17 09/04/17 08:45 04:56 04:56 Hgb 10.7 L Hct 32 L Plt Count 245 MPV 8.8 INR (Anticoag Therapy) 1.19 H Urine Color Yellow Urine Appearance Clear Urine pH 6.0 Ur Specific [place] 1.014 Urine Protein Negative Urine Ketones Negative Urine Blood Negative Urine Nitrate Negative Urine Bilirubin Negative Urine Urobilinogen Negative Ur Leukocyte Esterase Negative Urine Glucose Negative Assessment: POD #3 Right MAUDE Plan: D/C to [facility] tomorrow Lovenox/Coumadin for DVT ppx INR 1.19 today, Coumadin 8mg tonight F/U with Dr. Mayorga 10-14 days post op
[2017-09-04] MEDS: Nicotine PATCH 21 MG/24 HR* PATCH TRANSDERM SCH (09:23)
[2017-09-04] MEDS: Ropinirole TAB* 0.5 MG TAB PO SCH ×2 (09:23→20:18)
[2017-09-04] MEDS: Docusate CAP* 100 MG PO SCH ×2 (09:23→19:36)
[2017-09-04] MEDS: Enoxaparin(*) 30 MG/0.3 ML SYR SUBCUT SCH (12:38)
[2017-09-04] MEDS: Warfarin TAB(*) 4 MG PO SCH (17:43)
[2017-09-04] MEDS: Nicotine Patch Removal NOTE PATCH OFF SCH (20:21)
[2017-09-05 05:49] LABS: Hematocrit 34 % (42-52); Hemoglobin 11.5 g/dl (14.0-18.0); Mean Platelet Volume 8.6 um3 (7.4-10.4); Platelet Count 270 10^3/ul (150-450)
[2017-09-05] MEDS: oxyCODONE/Acetamin 5/325 MG* TAB PO PRN ×3 (06:04→21:01)
[2017-09-05 06:49] LABS: INR 1.93 (0.77-1.02)
[2017-09-05] MEDS: Ropinirole TAB* 0.5 MG TAB PO SCH ×2 (07:49→21:01)
[2017-09-05] MEDS: Nicotine PATCH 21 MG/24 HR* PATCH TRANSDERM SCH (07:49)
[2017-09-05] MEDS: Docusate CAP* 100 MG PO SCH ×2 (07:49→21:01)
--- NOTE | 2017-09-05 08:02 | PN ---
Progress Note - Progress Note Date of Service: 09/05/17 SOAP: Subjective: []Patient seen OOB in chair. He feels well with well controlled right hip pain. denies CP, SOB, dizziness. Objective: [] Vital Signs Temp 98.3 F 09/05/17 07:08 Pulse 94 09/05/17 07:08 Resp 16 09/05/17 07:08 BP 122/68 09/05/17 07:08 Pulse Ox 96 09/05/17 07:08 Intake & Output 09/04/17 09/05/17 09/05/17 18:59 06:59 18:59 Intake Total 810 1380 Output Total 1725 750 Balance -915 630 Intake: Oral 810 1380 Output: Urine 1725 750 Other: Date of Last Bowel 09/04/17 Movement # Bowel Movements 1 0 Estimated Stool Amount Large # Voids 1 Laboratory Last Values Hgb 11.5 g/dl (14.0-18.0) L 09/05/17 05:05 Hct 34 % (42-52) L 09/05/17 05:05 Plt Count 270 10^3/ul (150-450) 09/05/17 05:05 MPV 8.6 um3 (7.4-10.4) 09/05/17 05:05 INR (Anticoag Therapy) 1.93 (0.77-1.02) H 09/05/17 05:05 Sodium 137 mmol/L (135-145) 09/02/17 05:19 Potassium 4.2 mmol/L (3.5-5.0) 09/02/17 05:19 Chloride 108 mmol/L (101-111) 09/02/17 05:19 Carbon Dioxide 26 mmol/L (22-32) 09/02/17 05:19 Anion Gap 3 mmol/L (2-11) 09/02/17 05:19 BUN 14 mg/dL (6-24) 09/02/17 05:19 Creatinine 0.94 mg/dL (0.67-1.17) 09/02/17 05:19 Est GFR ( Amer) 99.4 (>60) 09/02/17 05:19 Est GFR (Non-Af Amer) 82.1 (>60) 09/02/17 05:19 BUN/Creatinine Ratio 14.9 (8-20) 09/02/17 05:19 Glucose 119 mg/dL (70-100) H 09/02/17 05:19 Calcium 8.5 mg/dL (8.6-10.3) L 09/02/17 05:19 Urine Color Yellow 09/03/17 08:45 Urine Appearance Clear 09/03/17 08:45 Urine pH 6.0 (5-9) 09/03/17 08:45 Ur Specific [place] 1.014 (1.010-1.030) 09/03/17 08:45 Urine Protein Negative (Negative) 09/03/17 08:45 Urine Ketones Negative (Negative) 09/03/17 08:45 Urine Blood Negative (Negative) 09/03/17 08:45 Urine Nitrate Negative (Negative) 09/03/17 08:45 Urine Bilirubin Negative (Negative) 09/03/17 08:45 Urine Urobilinogen Negative (Negative) 09/03/17 08:45 Ur Leukocyte Esterase Negative (Negative) 09/03/17 08:45 Urine Glucose Negative (Negative) 09/03/17 08:45 General: Well appearing, NAD RLE: Dressing CDI without surrounding erythema. Thigh soft. DF/PF intact. DP2+. Sensation intact distally. BL LE with calves supple and nontender without erythema, edema or palpable cords. Assessment: []POD #4 Right MAUDE Plan: Plan for D/C to [facility] today PT/OT Lovenox/Coumadin 2 mg today for DVT ppx F/U Dr Mayorga 10-14 days
--- NOTE | 2017-09-05 12:24 | DS ---
DATE OF ADMISSION: 09/01/2017. DATE OF DISCHARGE: 09/05/2017. ATTENDING PHYSICIAN: Dr. Jewell Mayorga* (dictated by SANDRA Brown). CHIEF COMPLAINT: 1. Right hip osteoarthritis. 2. History of basal cell carcinoma. 3. Restless leg syndrome. DISCHARGE DIAGNOSES: 1. Status post right total hip arthroplasty. 2. History of basal cell carcinoma. 3. Restless leg syndrome. PROCEDURE: Right total hip arthroplasty. CONSULTATIONS: Physical Therapy and Occupational Therapy. BRIEF HISTORY: Mr. Alva is a 57-year-old gentleman with continued complaints of right hip pain. He failed conservative management and elected to undergo a right total hip arthroplasty with Dr. Jewell Mayorga on 09/01/2017. HOSPITAL COURSE: Mr. Alva was admitted to [facility] on 09/01/2017. He underwent a right total hip arthroplasty. Postoperatively, he recovered on the Short Stay Surgical Unit. On postoperative day one, his Bower catheter was removed. He did have one episode of postsurgical urinary retention and did require in and out catheterization once. He then was able to urinate on his own. He was advanced to regular diet without difficulty. Pain was well- controlled with p.o. Percocet and he was restarted on his home medications. Labs and vital signs remained stable. He was able to weightbear as tolerated on the left lower extremity. He was advanced with physical therapy and occupational therapy. DVT prophylaxis was managed with Lovenox and Warfarin until he reached a therapeutic INR. He did have some concerns about home care as his is not able to care for him at this time and he was held until today , 09/05/2017. Postoperative day four, he was orthopedically and medically stable for discharge to an acute rehab facility. PHYSICAL EXAMINATION: General: Well-nourished, well-developed, in no acute distress, sitting comfortably in a chair. Vital Signs: Temperature 98.3, pulse 94, respirations 16, blood pressure 122/68. Right lower extremity: Dressing is clean, dry, and intact without surrounding erythema. Incision is intact with no erythema, no purulent drainage. He does have a small amount of edema surrounding the incision. Thigh is soft. He has intact dorsiflexion and plantarflexion, 2+ DP pulses. Sensation intact to light touch distally. Bilateral lower extremities: Calves are supple and nontender without erythema, edema, or palpable cords. LABORATORY DATA: On the date of discharge: Hemoglobin 11.5, hematocrit 34 percent, platelets 270; INR 1.93. RADIOGRAPHS: Postoperative radiographs of the right hip demonstrate right total hip arthroplasty with satisfactory prosthesis placement and no acute bony abnormalities. DISCHARGE MEDICATIONS: 1. Tylenol 325 two tabs as needed every 4 hours for pain or fever. 2. Colace 100 mg twice a day as needed for constipation. 3. Percocet 5/325 mg one to two tabs every 4 to 6 hours as needed for pain. 4. Ropinirole HCL one tab at night. 5. Warfarin 2 mg one to four tabs as directed every night at 5:00 p.m. CONDITION ON DISCHARGE: Stable. DISCHARGE INSTRUCTIONS: Mr. Alva is a 57-year-old male who is postoperative day four status post right total hip arthroplasty which was uncomplicated. He is orthopedically and medically stable for discharge to subacute rehab. Labs and vital signs are stable. He will restart his home medications. He will take 2 mg of Coumadin tonight, zero mg on TuesdaySeptember 06 , and 2 mg of Coumadin on TuesdaySeptember 07, and have his INR rechecked on September 08. He will have INR's drawn on Mondays and . He will remain weightbearing as tolerated on the right lower extremity. He will have physical therapy in the rehab center. He will take Percocet for pain control. He will take Colace up to three times a day for constipation. He will follow-up with Dr. Mayorga 10 to 14 days postop for incision check and suture removal. He has an appointment on September 14 at 8:[address] Jewell Mayorga for this. He was instructed to go to the ER emergency room if he develops chest pain or shortness of breath. He will call our office if he develops fever, increasing pain, or increasing redness. SANDRA BROWN [id number]/[facility] #: [id number] MAXINE
[2017-09-05] MEDS: Enoxaparin(*) 30 MG/0.3 ML SYR SUBCUT SCH (12:25)
[2017-09-05] MEDS: Warfarin TAB(*) 4 MG PO SCH (17:36)
[2017-09-05] MEDS: Nicotine Patch Removal NOTE PATCH OFF SCH (21:02)
[2017-09-06 06:07] LABS: Hematocrit 37 % (42-52); Hemoglobin 12.4 g/dl (14.0-18.0); Mean Platelet Volume 8.4 um3 (7.4-10.4); Platelet Count 307 10^3/ul (150-450)
[2017-09-06 06:16] LABS: INR 3.28 (0.77-1.02)
[2017-09-06] MEDS: oxyCODONE/Acetamin 5/325 MG* TAB PO PRN ×2 (06:30→11:46)
[2017-09-06 08:05] VITALS: BP 109/79
[2017-09-06] MEDS: Docusate CAP* 100 MG PO SCH (08:35)
[2017-09-06] MEDS: Ropinirole TAB* 0.5 MG TAB PO SCH (08:35)
[2017-09-06] MEDS: Nicotine PATCH 21 MG/24 HR* PATCH TRANSDERM SCH (08:35)
--- NOTE | 2017-09-06 09:22 | PN ---
Progress Note - Progress Note Date of Service: 09/06/17 SOAP: Subjective: []Patient seen OOB in chair. He is feeling very well with well controlled hip pain. Denies chest pain, shortness of breath, dizziness or nausea. Desires to go home. Objective: [] Vital Signs Temp 98.1 F 09/06/17 07:53 Pulse 81 09/06/17 07:53 Resp 16 09/06/17 08:38 BP 109/79 09/06/17 07:53 Pulse Ox 97 09/06/17 08:30 Intake & Output 09/05/17 09/06/17 09/06/17 18:59 06:59 18:59 Intake Total 1700 900 Output Total 1500 1125 Balance 200 -225 Intake: Oral 1700 900 Output: Urine 1500 1125 Laboratory Last Values Hgb 12.4 g/dl (14.0-18.0) L 09/06/17 05:31 Hct 37 % (42-52) L 09/06/17 05:31 Plt Count 307 10^3/ul (150-450) 09/06/17 05:31 MPV 8.4 um3 (7.4-10.4) 09/06/17 05:31 INR (Anticoag Therapy) 3.28 (0.77-1.02) H 09/06/17 05:31 Sodium 137 mmol/L (135-145) 09/02/17 05:19 Potassium 4.2 mmol/L (3.5-5.0) 09/02/17 05:19 Chloride 108 mmol/L (101-111) 09/02/17 05:19 Carbon Dioxide 26 mmol/L (22-32) 09/02/17 05:19 Anion Gap 3 mmol/L (2-11) 09/02/17 05:19 BUN 14 mg/dL (6-24) 09/02/17 05:19 Creatinine 0.94 mg/dL (0.67-1.17) 09/02/17 05:19 Est GFR ( Amer) 99.4 (>60) 09/02/17 05:19 Est GFR (Non-Af Amer) 82.1 (>60) 09/02/17 05:19 BUN/Creatinine Ratio 14.9 (8-20) 09/02/17 05:19 Glucose 119 mg/dL (70-100) H 09/02/17 05:19 Calcium 8.5 mg/dL (8.6-10.3) L 09/02/17 05:19 Urine Color Yellow 09/03/17 08:45 Urine Appearance Clear 09/03/17 08:45 Urine pH 6.0 (5-9) 09/03/17 08:45 Ur Specific [place] 1.014 (1.010-1.030) 09/03/17 08:45 Urine Protein Negative (Negative) 09/03/17 08:45 Urine Ketones Negative (Negative) 09/03/17 08:45 Urine Blood Negative (Negative) 09/03/17 08:45 Urine Nitrate Negative (Negative) 09/03/17 08:45 Urine Bilirubin Negative (Negative) 09/03/17 08:45 Urine Urobilinogen Negative (Negative) 09/03/17 08:45 Ur Leukocyte Esterase Negative (Negative) 09/03/17 08:45 Urine Glucose Negative (Negative) 09/03/17 08:45 General: Well appearing, NAD RLE: Dressing changed, incision CDI without surrounding erythema. Thigh soft. DF /PF intact. DP2+. Sensation intact distally. BL LE with calves supple and nontender without erythema, edema or palpable cords. Assessment: []POD #5 Right MAUDE Plan: DC home PT/OT Stop Lovenox/ Hold Coumadin today as supratherapeutic INR F/U Dr Mayorga 10-14 days post op
--- NOTE | 2017-09-06 15:24 | DS ---
DATE OF ADMISSION: 09/01/2017. DATE OF DISCHARGE: 09/06/2017. ATTENDING PHYSICIAN: Dr. Jewell Mayorga* (dictated by SANDRA Allison). AUTO HAULER: SANDRA Russell. PREOPERATIVE DIAGNOSIS: Severe end-stage degenerative osteoarthritis of the right hip joint. OPERATIVE PROCEDURE: Right total hip arthroplasty. HISTORY: Mr. Alva is a 57-year-old male with years of increasingly severe right hip pain. He failed conservative treatment with anti-inflammatory pain medication and physical therapy. He elected to undergo a right total hip arthroplasty. HOSPITAL COURSE: The patient was admitted to [facility] on 2017. He underwent a right total hip arthroplasty without complication. He recovered briefly in the PACU and then was taken the Short Stay Surgical Unit in stable condition. Postop day one, he was well-appearing and in no acute distress. Dressing was clean, dry, and intact without erythema. 2+ dorsalis pedis pulse. Dorsiflexion and plantarflexion intact. Sensation intact to light touch. On postop day two, he was in no acute distress. Incision clean, dry, and intact. On postop day three, dressing was clean, dry, and intact. Mild edema of the thigh remains present, but thigh is soft and nontender. On postop day four, the patient was well-appearing and in no acute distress. Dressing was clean, dry, and intact without surrounding erythema. The patient is progressing well. He had planned to discharge to rehab today, though later in the day decided that he would prefer to go home. He therefore stayed overnight until postop day five. He was well- appearing and in no acute distress. Dressing was changed. Incision was clean, dry, and intact without surrounding erythema. Thigh was soft. Dorsiflexion and plantarflexion intact. DP pulse 2+ . Sensation intact distally. Hemoglobin 12.4, hematocrit 34, INR 3.28. Temperature 98.1, pulse 81, respiratory rate 16, blood pressure 109/79, pulse ox 79. The patient was deemed medically and orthopedically stable for discharge home. DISCHARGE MEDICATIONS: 1. Resume Ropinirole. 2. Discontinue ibuprofen. 3. Discontinue Tylenol Extra Strength. New medications for home: 1. Acetaminophen 650 mg p.o. q.4 hours prn, max daily dose of 4,000 mg from all sources. 2. Docusate 100 mg p.o. b.i.d. prn constipation. 3. Percocet 5/325 one to two tabs every 4 to 6 hours prn, max daily dose of 10. 4. Warfarin 2 mg tabs one to three tabs daily, dose depending on INR values. DISCHARGE PLAN: Weightbearing as tolerated. Okay to shower on postop day three. Do not submerge the wound. Continue hip precautions. Coumadin dosing September 06 0 mg, September 07 0 mg, September 08 2 mg, September 09 recheck INR for further dosing instructions. Pain control with Percocet 5/325 one to two tabs every four to six hours needed for pain, max of ten tabs per day. Follow-up with Dr. Mayorga in 10 to 14 days after operation. Patient has an appointment on 2017 at 8:[address] Mayorga. SANDRA BARKER [id number]/[facility] #: [id number] MAXINE
== END 2017-09-06 11:55 | disposition home or self-care (01) | DRG 301 ==
LOC: AA 09-01 07:34 → SSU 09-01 13:46
PROVIDERS: ADMIT Orthopaedic Surgery Adult Reconstructive Orthopaedic Surgery; ATTEND Orthopaedic Surgery Adult Reconstructive Orthopaedic Surgery
PROC: 0SR904A Replacement of Right Hip Joint with Ceramic on Polyethylene Synthetic Substitute, Uncemented, Open Approach (ICD-10-PCS; principal; 2017-09-01 09:15)
DX: M16.11 Unilateral primary osteoarthritis, right hip (principal); G25.81 Restless legs syndrome; R33.9 Retention of urine, unspecified; F17.210 Nicotine dependence, cigarettes, uncomplicated; M25.751 Osteophyte, right hip; Z85.828 Personal history of other malignant neoplasm of skin; Z82.49 Family history of ischemic heart disease and other diseases of the circulatory system; Z83.2 Family history of diseases of the blood and blood-forming organs and certain disorders involving the immune mechanism; Z72.89 Other problems related to lifestyle; Z80.1 Family history of malignant neoplasm of trachea, bronchus and lung; Z82.69 Family history of other diseases of the musculoskeletal system and connective tissue; Z80.0 Family history of malignant neoplasm of digestive organs; Z83.6 Family history of other diseases of the respiratory system; Z79.01 Long term (current) use of anticoagulants
CPT/HCPCS: 36415; 72170; 80048; 81003; 85014; 85018; 85049; 85610; A9270-GY; C1713; C1776; G8987-GO-CI; G8988-GO-CH; J0690; J1100; J1200; J1650; J2250; J2795; J3010

== ENCOUNTER 2018-02-09 12:14 | Inpatient (IN) | payer OTHER ==
--- NOTE | 2018-01-31 20:15 | HP ---
HISTORY AND PHYSICAL: DATE OF SURGERY: 02/09/18 DATE OF OFFICE VISIT: 01/30/18 SURGEON: Jewell Mayorga MD * (DICTATED BY SANDRA BONILLA) PROCEDURE: Left total hip arthroplasty. CHIEF COMPLAINT: Left hip pain. HISTORY OF PRESENT ILLNESS: Mr. Alva is a 57-year-old gentleman with complaints of left hip pain. He has failed conservative treatment and elected to proceed with a left total hip arthroplasty. PAST MEDICAL HISTORY: Basal cell carcinoma. PAST SURGICAL HISTORY: Hernia repair and right total hip arthroplasty. CURRENT MEDICATIONS: 1. Ropinirole 1 mg 1-/2 to 2 tabs at night. 2. Nasal spray. ALLERGIES: No known drug allergies. FAMILY HISTORY: Lung cancer. SOCIAL HISTORY: A 57-year-old gentleman lives with his . He smokes half a pack a day. Denies use of drugs. Uses occasional alcohol. REVIEW OF SYSTEMS: A complete 14-point review of systems was reviewed with the patient and was all negative and noncontributory. He denies history of DVT, PE , hepatitis, HIV, or anesthesia problems. PHYSICAL EXAMINATION GENERAL: He is well developed, well nourished. No acute distress. VITAL SIGNS: He stands 6 feet 7 inches tall, weighs 177 pounds, his blood pressure is 122/76 and his heart rate is 64. HEENT: Normocephalic, atraumatic. NECK: Supple. No palpable lymph nodes. PULMONARY: The lungs are clear to auscultation bilaterally. CARDIO: Regular rate and rhythm. Strong S1, S2. ABDOMEN: Soft, nontender, nondistended. NEUROLOGIC: He is alert and oriented x3. MUSCULOSKELETAL: Left lower extremity, the skin is intact. There are no open wounds or abrasions. He walks with a slightly antalgic type gait favoring his left hip. He has 2+ dorsalis pedis pulse. His lower extremity, muscle group strengths are intact at 5/5 and he has intact sensation. ASSESSMENT AND PLAN: Mr. Alva is a 57-year-old gentleman with end-stage osteoarthritis of the left hip. He has failed conservative treatment and elected to proceed with a left total hip arthroplasty. The surgery is scheduled for 02/09/[address] Mayorga discussed the risks, the benefits of the surgery at today's visit and all of her questions were answered. He will followup with Dr. Mayorga 2 weeks after the surgery. SANDRA BONILLA [id number]/[facility] #: [id number] MTDD
[~2018-02-09 12:14] MED LIST changes: +Acetaminophen IV 1GM/100ML * 1,000 MG/100 ML VIAL IVPB ONE; +Acetaminophen TAB* 325 MG PO ONE; -Dexamethasone IV* 4 MG/ML 1 ML (4 MG) ONE; -Ketorolac INJ* 30 MG/ML 1 ML VIAL ONE; -Lidocaine 2% PF * 5 ML VIAL ONE; -Midazolam* 1 MG/ML 5 ML VIAL (5 MG) ONE; -Ondansetron INJ* 2 MG/ML VIAL ONE; -Propofol* 10 MG/ML 20 ML BTL IV PUSH ONE; +celeCOXIB CAP* 200 MG PO ONE; -fentaNYL* 50 MCG/ML 2 ML VIAL (100 MCG VIAL) ONE
--- OUTSIDE RECORDS SUMMARY | 2018-02-09 12:20 | XMS REPORT | Continuity of Care Document ---
:1960 External Reference #:[id number] Author Name Linda Hylton Care Team Providers Name Role Phone Fermin Bullard MD Primary Care Physician Unavailable Payers Type Date Identification Numbers Payment Provider Subscriber Expires: 2014 Policy Number: [id number] [employer] Alicia Oneill PayID: [id number] [address] [place] [address] Policy Number: [id number] Lifetime Benefit [employer] Alicia Beata Oneill Group Number: [id number] [address] [address] PayID: [facility] [place] [address] Advance Directives Description No Information Available Problems Date Description Provider Status Onset: 07/07/2015 Basal cell carcinoma of skin of [place] Mack M.D. Active other parts of face Onset: 09/11/2015 Arthralgia of the pelvic region and Akbar Resendiz MD Active thigh Onset: 09/11/2015 Knee pain Akbar [...] pericarditis Social History Type Date Description Comments Sex Unknown Marital Status Lives With Occupation childcare attendant Cutter Tender[employer] Tobacco Use Start: Unknown currently smokes 1/2 Pack Daily Tobacco Use Start: Unknown Never Smoked Cigars Tobacco Use Start: Unknown Never Smoked A Pipe Smokeless Tobacco Never Used Smokeless Tobacco ETOH Use Rarely consumes alcohol Recreational Drug Use Denies Drug Use Tobacco Use Start: Unknown Light tobacco smoker (10 or fewer cigarettes/day) Smoking Status Reviewed: 01/30/18 Light tobacco smoker (10 or fewer cigarettes/day) Exercise Type/Frequency Does not exercise Allergies, Adverse Reactions, Alerts Description No Known Drug Allergies Medications Medication Date Status Form Strength Qnty SIG Indications Ordering Provider Amoxicillin 11/16/ Active Capsules 500mg 4caps take 4 pills, M25.551 Jewell 2018 2 g 1 hour Mukesh, before dental M.D. or gi procedure Compression 09/14/ Active Misc 1unit Jewell Marino 2018 s Kobi Mayorga Ropinirole / Active Tablets 1mg take 1 and Unknown HCL 0000 1/2 to 2 tablets every evening Ibuprofen / Active Tablets 200mg 4 tabs as Unknown 0000 needed Tylenol Extra / Active Tablets 500mg 2 by mouth as Unknown Strength 0000 needed Nose [place] / Active Unknown 0000 Coumadin 09/05/ Hx Tablets 2mg 60tab take 1-5 tabs Jewell 2018 - s by mouth Mukesh, 01/08/ daily as M.D. 2018 directed by doctor Percocet 09/05/ Hx Tablets 5-325mg 70tab 1-2 tabs by Jewell 2018 - s mouth every Mukesh, 10/04/ 4-6 hours as M.D. 2018 needed pain Colace 09/05/ Hx Capsules 100mg 90cap 1 tab by Jewell 2018 - s mouth three Mukesh, 01/08/ times a day M.D. 2018 as needed constipation Does Not Know Hx Rio His 2015 - Ruparelia Medications. , Kobi 2016 Piroxicam 04/27/ Hx Capsules 20mg 30cap one capsule 843.9 Gilbert 2012 - s po daily with Veigel, 10/14/ food M.D. 2014 Chantix / Hx Tablets 1mg 60tab 1 po bid Unknown Continuing - s Month Magen 2014 Chantix / Hx Tablets 1mg 1 by mouth Unknown 0000 twice a day Tylenol / Hx Capsules 325mg 2 tablets Unknown 0000 - every 4 hours 05/14/ as needed for 2018 pain Nicotine Step / Hx Patches 21mg/24HR 1 topical Unknown 1 0000 - 24HR every day for 4-6 wks then 2018 taper (patient is cutting patch in half) Medications Administered in Office Medication Date Status Form Strength Qnty SIG Indications Ordering Provider Inj, Administered Injection Denilson Basilia Regadenoson, 018 Carrera, DO 0.1 MG FACC Technetium TC Administered Injection Denilson S. 99M 018 Carrera, DO Tetrofosmin, FACC Per Unit Dose Up To 40 Millicuries Immunizations Description No Information Available Vital Signs Date Vital Result Comment 01/30/2018 1:07pm Height 67 inches 5'7" Weight 177.00 lb Heart Rate 64 /min BP Systolic 122 mmHg BP Diastolic 78 mmHg Respiratory Rate 20 /min Body Temperature 97.2 F Pain Level 2 BMI (Body Mass Index) 27.7 kg/m2 01/09/2018 1:40pm Height 67 inches 5'7" Weight 176.00 lb Heart Rate 84 /min BP Systolic 134 mmHg BP Diastolic 84 mmHg Body Temperature 97.8 F Pain Level 4 BMI (Body Mass Index) 27.6 kg/m2 11/16/2017 7:52am Height 67 inches 5'7" Weight 177.00 lb BP Systolic 140 mmHg BP Diastolic 92 mmHg Respiratory Rate 16 /min Body Temperature 97.2 F Pain Level 0 BMI (Body Mass Index) 27.7 kg/m2 10/05/2017 8:07am Height 67 inches 5'7" Weight 177.00 lb BP Systolic 130 mmHg BP Diastolic 78 mmHg Respiratory Rate 16 /min Body Temperature 96.3 F Pain Level 1 BMI (Body Mass Index) 27.7 kg/m2 09/14/2017 8:44am Height 67 inches 5'7" Heart Rate 76 /min BP Systolic Sitting 126 mmHg BP Diastolic Sitting 84 mmHg Respiratory Rate 16 /min Body Temperature 96.8 F Pain Level 2 08/22/2017 11:14am Height 67 inches 5'7" Weight 177.00 lb BP Systolic Sitting 122 mmHg BP Diastolic Sitting 74 mmHg Respiratory Rate 16 /min Body Temperature 98.0 F Pain Level 5 BMI (Body Mass Index) 27.7 kg/m2 07/25/2017 2:10pm Height 67 inches 5'7" Weight 177.00 lb BP Systolic Sitting 128 mmHg BP Diastolic Sitting 68 mmHg Respiratory Rate 16 /min Pain Level 0 BMI (Body Mass Index) 27.7 kg/m2 07/22/2017 2:11pm Height 67 inches 5'7" Weight 176.00 lb Heart Rate 85 /min BP Systolic Sitting 134 mmHg BP Diastolic Sitting 80 mmHg Respiratory Rate 16 /min Body Temperature 98.0 F Pain Level 6 BMI (Body Mass Index) 27.6 kg/m2 06/10/2017 1:37pm Heart Rate 72 /min BP Systolic Sitting 130 mmHg BP Diastolic Sitting 84 mmHg Respiratory Rate 18 /min Body Temperature 97.5 F 05/17/2017 8:54am Weight 176.19 lb No shoes BP Systolic 120 mmHg Rue reg cuff BP Diastolic 70 mmHg Rue reg cuff BP Systolic Sitting 135 mmHg Lue reg cuff BP Diastolic Sitting 80 mmHg Lue reg cuff Respiratory Rate 14 /min 11/23/2016 10:57am Heart Rate 66 /min BP Systolic 126 mmHg BP Diastolic 82 mmHg Respiratory Rate 16 /min Body Temperature 97.3 F 10/26/2016 8:28am Height 67 inches 5'7" Weight 167.00 lb Heart Rate 68 /min BP Systolic 120 mmHg BP Diastolic 78 mmHg Respiratory Rate 16 /min Body Temperature 96.1 F BMI (Body Mass Index) 26.2 kg/m2 11/24/2015 3:44pm Height 67 inches 5'7" Weight 165.00 lb BP Systolic Sitting 124 mmHg BP Diastolic Sitting 78 mmHg BMI (Body Mass Index) 25.8 kg/m2 09/11/2015 3:32pm Height 67 inches 5'7" Weight 170.00 lb Heart Rate 84 /min BP Systolic Sitting 120 mmHg BP Diastolic Sitting 84 mmHg BMI (Body Mass Index) 26.6 kg/m2 07/07/2015 3:57pm Heart Rate 80 /min BP Systolic Sitting 124 mmHg BP Diastolic Sitting 80 mmHg 10/14/2014 3:31pm Weight 177.00 lb Heart Rate 80 /min BP Systolic Sitting 136 mmHg BP Diastolic Sitting 80 mmHg 04/27/2012 3:28pm Height 67 inches 5'7" Weight 175.00 lb BP Systolic Sitting 112 mmHg BP Diastolic Sitting 76 mmHg BMI (Body Mass Index) 27.4 kg/m2 Results Test Date Facility Test Result H/L Range Note Inr/Protime [facility] Inr 1.89 High 0.77-1.[address] [place] [id number] [phone] Inr/Protime [facility] Inr 1.24 High 0.77-1.02 [address] [place] [address] [phone] Inr/Protime [facility] Inr 2.76 High 0.77-1.02 [address] [place] [address] [phone] Inr/Protime [facility] Inr 1.68 High 0.77-1.02 [address] [place] [address] [phone] Inr/Protime [facility] Inr 1.65 High 0.77-1.02 [address] [place] [address] [phone] Inr/Protime [facility] Inr 2.21 High 0.77-1.[address] [place] [address] [phone] Urine Culture And [facility] Urine SEE RESULT 5 Sensitivities [address] Culture BELOW [place], [place] [id number] [phone] Type & Screen [facility] Patient A Positive [address] [place] [address] [phone] Antibody Screen NEGATIVE Urinalysis Profile 08/22/2017 [facility] Urine Color Yellow [address] [place] [address] [phone] Urine Appearance Clear Urine Specific [place] 1.018 N 1.010-1.030 Urine pH 5.0 N 5-9 Urine Urobilinogen Negative Negative Urine Ketones Negative Negative Urine Protein Negative Negative Urine Leukocytes Negative Negative Urine Blood Negative Negative Urine Nitrite Negative Negative Urine Bilirubin Negative Negative Urine Glucose Negative Negative Laboratory test 08/22/2017 [facility] Partial 29.6 seconds N 26.0-36.[address] [place] [address] PTT [phone] Inr/Protime 08/22/2017 [facility] Inr 0.95 N 0.77-1.[address] [place] [address] [phone] Laboratory test 07/14/2015 [facility] Surgical SEE RESULT [address] Pathology BELOW [place], [place] [address] [phone] 1 [id number] [address] MAYORGA AT [phone] CALL RESULTS TO AT [phone] [address] MAYORGA AT [phone] 5 SEE RESULT BELOW Name: JAYDEN UMAÑA : [address]: Jewell Mayorga MD Acct: [id number] Unit: [id number] AGE: 57 Location: [facility] Re08/22/17 SEX: M Status: REG REF SPEC: [id number] YOAN: 08/22/171421 [facility] DR: Jewell Mayorga MD REQ: [id number] RECD: 08/22/17 STATUS: JAYDEN VELASQUEZ DR: Fermin Bullard MD _ SOURCE: URINE SPDESC: ORDERED: Urine Culture QUERIES: Urine Source: Clean Catch Procedure Result Reported Site Urine Culture Final 08/23/17- 1217 ML No Growth (<1,000 CFU/mL) * ML - Main Lab . END OF REPORT DEPARTMENT OF PATHOLOGY, [address] [place] [address] Haroon Ahuja M.D. Director [facility] # [id number] 6 SEE RESULT BELOW Name: JAYDEN UMAÑA : [address]: Rio Mack MD Acct: [id number] Unit: [id number] AGE: 55 Location: [facility] Re07/14/15 SEX: M Status: REG REF SPEC: [id number] YOAN: 07/14/15-1515 [facility] DR: Rio Mack MD REQ: [id number] RECD: 07/14/15 STATUS: SOUT _ ORDERED: LEVEL [...] performed at Main Lab DEPARTMENT OF PATHOLOGY, [address] [place] [address] Haroon Ahuja M.D. Director [facility] # [id number] Procedures Date Code Description Status 09/01/2017 74066 THR Total Hip Replacement Completed 09/01/201789665 THR Total Hip Replacement Completed 05/25/2017 66216 Stress Test Completed 05/25/2017 43451 Myocardial Perfusion Imaging Tomographic (Spect) Multiple Completed Studies 05/17/2017 45776 EKG Tracing & Interpretation Completed 11/15/2016 24001 Laparoscopy, Surgical Repair Initial Inguinal Hernia Completed 11/15/2016 14165 Laparoscopy, Surgical Repair Initial Inguinal Hernia Completed 07/14/2015 57627 Excise Malig Lesion > 4CM Face/Ear/Eyelid/Nose/Lip Completed Encounters Type Date Location Provider Dx Diagnosis Office Visit 01/09/2018 Orthopedic Jewell Mayorga, M25.552 Pain in left hip 1:30p [facility] Peace M16.12 Unilateral primary osteoarthritis, left hip Office Visit 07/25/2017 [facility] L91.9 Hypertrophic 2:15p [facility] AT Kobi Mack disorder of the Williamson skin, unspecified Office Visit 07/22/2017 Orthopedic Jewell Mayorga, M16.11 Unilateral primary 2:00p [facility] Kobi osteoarthritis, C.M.AYue right hip M25.551 Pain in right hip M25.552 Pain in left hip M16.12 Unilateral primary osteoarthritis, left hip Office Visit 06/10/2017 1:45p Surgical Chivo S. R10.31 Right lower [facility] Gauri Johnson MD quadrant pain R10.32 Left lower quadrant pain Office Visit 05/17/2017 9:00a [facility] Denilson S. R07.9 Chest pain , Of Gauri Carrera, unspecified FACC F17.201 Nicotine dependence, unspecified, in remission Office Visit 10/26/2016 8:30a Surgical Chivo S. K40.20 Bi inguinal [facility] MD Alex hernia, w/o [employer] Lead obst or gangrene, not spcf as recur Office Visit 11/24/2015 3:45p [facility] C44.319 Basal cell [facility] AT Kobi Mack carcinoma of Williamson skin of other parts of face Office Visit 09/11/2015 3:15p Sports Medicine Akbar Resendiz MD M25.551 Pain in right Of [employer] Lead AT hip Williamson M25.561 Pain in right knee Office Visit 07/07/2015 4:00p [facility] C44.319 Basal cell [facility] AT Kobi Mack carcinoma of Williamson skin of other parts of face Office Visit 10/14/2014 3:30p [facility] 173.30 Unspec [facility] 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 843.9 Sprains & Of [employer] Lead AT Strains Hip & Natanael Thigh Unspec Site Plan of Treatment Future Appointment(s):02/22/2018 8:15 am - Jewell Mayorga M.D. at [facility]02/09/2018 3:30 pm - MAGALIE Marin at [facility]02/09/2018 3:30 pm - SANDRA Suero at [facility]02/09/2018 3:30 pm - Jewell Mayorga M.D. at [facility]01/30/2018 - Jewell Mayorga M.D.M25.552 Pain in left hipFollow up:Follow up: 2 weeks after bhreunaC90.12 Unilateral primary osteoarthritis, left hip
[2018-02-09] MEDS ORDERED: Famotidine IV* 10 MG/ML 2 ML (20 mg) ONE (12:39)
[2018-02-09] MEDS ORDERED: celeCOXIB CAP* 100 MG ONE (12:40)
[2018-02-09] MEDS ORDERED: ceFAZolin 2 GM PREMIX in ORs 2 GM/50 ML BAG IVPB ONE (12:40)
[2018-02-09] MEDS ORDERED: Acetaminophen TAB* 325 MG ONE (12:40)
[2018-02-09] MEDS ORDERED: Dexamethasone IV* 4 MG/ML 1 ML (4 MG) IV SLOW PU ONE (12:59)
[2018-02-09] MEDS ORDERED: Dexamethasone IV* 4 MG/ML 1 ML (4 MG) ONE (13:04)
[2018-02-09] MEDS ORDERED: Naloxone* 0.4 MG/ML 1 ML VIAL IV PRN (13:14)
[2018-02-09] MEDS ORDERED: DiMENhydriNATE IV* 50 MG/ML VIAL IV PUSH PRN (13:14)
[2018-02-09] MEDS ORDERED: oxyCODONE TAB* 5 MG TAB PO PRN (13:14)
[2018-02-09] MEDS ORDERED: Midazolam* 1 MG/ML 5 ML VIAL (5 MG) ONE (13:40)
[2018-02-09] MEDS ORDERED: fentaNYL* 50 MCG/ML 2 ML VIAL (100 MCG VIAL) ONE ×2 (13:40→17:34)
[2018-02-09] MEDS ORDERED: Ropivacaine* 2 MG/ML 20 ML VIAL (0.2%) ONE (13:52)
[2018-02-09] MEDS ORDERED: Ropivacaine (OR use only) 2 MG/ML 10 ML ONE (13:54)
[2018-02-09] MEDS ORDERED: Bupivacaine 0.5% SDV PF* 30ML VIAL ONE (14:38)
[2018-02-09] MEDS ORDERED: Lidocaine 2% PF * 5 ML VIAL ONE (14:55)
[2018-02-09] MEDS ORDERED: Propofol* 500 MG/50 ML BTL ONE (14:55)
[2018-02-09] MEDS ORDERED: Phenylephrine INJ* 10 MG/ML 1 ML VIAL (10 MG) ONE (15:32)
[2018-02-09] MEDS ORDERED: Ondansetron INJ* 2 MG/ML VIAL IV PRN (16:20)
[2018-02-09] MEDS ORDERED: Ondansetron ODT TAB* 4 MG PO PRN (16:20)
[2018-02-09] MEDS ORDERED: Magnesium Hydroxide LIQ* 30 ML UDC PO PRN (16:20)
[2018-02-09] MEDS ORDERED: traMADol TAB* 50 MG PO PRN (16:20)
[2018-02-09] MEDS ORDERED: Polyethylene Glycol 3350* 17 GM PACKET PO PRN (16:20)
[2018-02-09] MEDS ORDERED: Bisacodyl SUPP* 10 MG SUPP PR PRN (16:20)
[2018-02-09] MEDS ORDERED: oxyCODONE/Acetamin 5/325 MG* TAB PO PRN (16:20)
[2018-02-09] MEDS ORDERED: diPHENhydraMINE IV* 50 MG/ML 1 ml VIAL (BENADRYL) IV PRN (16:20)
[2018-02-09] MEDS ORDERED: Morphine VIAL* 4 MG/ML VIAL (1 ml vial) IV PRN (16:20)
[2018-02-09] MEDS ORDERED: Ondansetron INJ* 2 MG/ML VIAL ONE (16:39)
[2018-02-09] MEDS ORDERED: oxyCODONE TAB* 5 MG TAB ONE (17:34)
[2018-02-09] MEDS: fentaNYL* 50 MCG/ML 2 ML VIAL (100 MCG VIAL) IV PRN ×2 (17:36→17:50)
[2018-02-09] MEDS: Magnesium Hydroxide LIQ* 30 ML UDC PO SCH (20:18)
[2018-02-09] MEDS: oxyCODONE/Acetamin 5/325 MG* TAB PO PRN ×2 (20:18→23:50)
[2018-02-09] MEDS: rOPINIRole TAB* 1 MG PO SCH (20:18)
[2018-02-09] MEDS: Docusate CAP* 100 MG PO SCH (20:19)
[2018-02-09] MEDS: oxyCODONE TAB* 5 MG TAB PO PRN (21:50)
[2018-02-09] MEDS: ceFAZolin 1 GM ADVAN(*) 1 GM in NS 0.9% 50 ML* 50 ML IVPB SCH (22:22)
[2018-02-09] MEDS: Acetaminophen TAB* 325 MG PO SCH (22:38)
[2018-02-09] MEDS: Nicotine PATCH 21 MG/24 HR* PATCH TRANSDERM SCH (23:20)
[2018-02-10] MEDS: oxyCODONE TAB* 5 MG TAB PO PRN ×3 (01:50→11:59)
[2018-02-10] MEDS: oxyCODONE/Acetamin 5/325 MG* TAB PO PRN ×2 (05:08→17:19)
[2018-02-10 06:14] LABS: Hematocrit 34 % (42-52); Hemoglobin 11.4 g/dl (14.0-18.0); Mean Platelet Volume 8.5 fL (7.4-10.4); Platelet Count 267 10^3/ul (150-450)
[2018-02-10] MEDS: ceFAZolin 1 GM ADVAN(*) 1 GM in NS 0.9% 50 ML* 50 ML IVPB SCH ×2 (06:14→13:01)
[2018-02-10 06:19] LABS: INR 1.05 (0.77-1.02)
[2018-02-10 06:31] LABS: EGFR Non-African American 100.4 (>60)
[2018-02-10] MEDS: Acetaminophen TAB* 325 MG PO SCH ×3 (06:42→21:55)
[2018-02-10] MEDS: Magnesium Hydroxide LIQ* 30 ML UDC PO SCH ×2 (07:57→20:30)
[2018-02-10] MEDS: Docusate CAP* 100 MG PO SCH ×2 (07:57→20:30)
[2018-02-10] MEDS: Apixaban* 2.5 MG TAB PO SCH ×2 (07:57→20:30)
--- NOTE | 2018-02-10 08:57 | OP ---
DATE OF OPERATION: 02/09/18 - ROOM #338 DATE OF : 56 SURGEON: Jewell Mayorga MD. SYSTEMS ADMINISTRATION ANALYST: SANDRA Isabel. Ms. Simpson did help throughout the procedure with preparation of the leg, wound retraction, manipulation of the hip, and wound closure. ANESTHESIOLOGIST: Dr. Kim. ANESTHESIA: Spinal. PRE-OP DIAGNOSIS: Severe endstage degenerative osteoarthritis of the left hip joint. POST-OP DIAGNOSIS: Severe endstage degenerative osteoarthritis of the left hip joint. OPERATIVE PROCEDURE: Left total hip arthroplasty. COMPLICATIONS: None. ESTIMATED BLOOD LOSS: 300 cc. SPECIMENS: Femoral head and acetabular reamings sent to Pathology. HARDWARE USED: This is uncemented Scodix total hip arthroplasty hardware. For the cup, a Tritanium cluster hole shell 56E, a 20 mm and a 16 mm screw were used. A Trident X3 0-degree polyethylene insert 36E was used. For the stem, an Accolade II size 5 with a 127-neck was chosen. For the head, a Biolox delta ceramic V40 femoral head 36 +0. BRIEF HISTORY AND INDICATIONS: Mr. Alva is a 57-year-old male gentleman with a 1-year of increasingly severe left hip pain. Radiographs showed bone on bone arthritis. He failed conservative treatment with antiinflammatories, pain medications and physical therapy. Due to continued pain and decreased quality of life, he elected to undergo left total hip arthroplasty. Informed consent was obtained from the patient. He understood the risks of surgery included but were not limited to bleeding, infection, damage to nearby structures, continued pain, need for further surgery, intraoperative fracture, nerve palsy, hardware failure or loosening, dislocation, leg length discrepancy , stroke, heart attack, blood clot and . He wished to proceed. INTRAOPERATIVE FINDINGS: Intraoperatively, the patient was noted to have extensive osteophyte formation around the entire acetabulum. He had complete loss of cartilage in the femoral head and acetabulum. The acetabulum was shallow and dysplastic with a minimal posterior wall. DESCRIPTION OF PROCEDURE: Mr. Alva was identified in the preanesthesia unit. His left lower extremity was marked as the correct operative side. Informed consent was signed and placed in the chart. The patient was taken to the operating room and placed under spinal anesthesia. A Bower catheter was placed. He was placed in the right lateral decubitus position on the peg board. All bony prominences were well padded. Left lower extremity was prepped and draped in the usual sterile fashion. Preop time-out was made to correctly identify the patient, side, and site. Appropriate perioperative antibiotics were given within 1 hour of incision. A 12-cm posterior hip incision was made with a 10-blade and carried down to the lateral fascial layer. The lateral fascial layer was incised in line with the skin incision. A Charnley retractor was placed. The piriformis and conjoint tendons were elevated off the posterolateral femur using electrocautery and tagged with #5 Ethibond. Next, electrocautery was used to make a standard posterolateral capsular flap and this was also tagged with #5 Ethibond. The hip was carefully dislocated. Lesser troch to center of the femoral head measured 62 mm. Oscillating saw was used to make the femoral neck cut. The femoral head was carefully removed. After appropriate placement of retractors, the acetabulum was well visualized. Femur was retracted anteriorly. Long-handled knife was used to sharply remove any remaining labrum from the acetabular rim. The acetabulum was sequentially reamed up to a size 55. A 55 reamer established a bleeding subchondral bone bed. A 55 trial had excellent stability. The final implant chosen was a Tritanium cluster hole shell 56E. This was impacted into the acetabulum without difficulty. A 20 mm and a 16 mm screw were placed in the superior posterior quadrant for extra stability. For the liner, a Trident X3, 0-degree polyethylene insert 36E was chosen. This was impacted into the acetabulum. Stability of the liner was checked and rechecked and noted to be stable. Next, attention was turned to preparation of the femoral canal. A canal finder was used to enter the proximal femur. The proximal femur was sequentially broached up to a size 5. Size 5 broach had excellent fit and stability with appropriate anteversion. A 127 neck trial and a 36 +0 head trial were chosen. The lesser troch to center of the femoral head measured 62 mm. The hip was reduced and taken through range of motion. The hip was stable in all positions. There was good soft tissue tension and appropriate leg lengths. The hip was dislocated and all trials were carefully removed. Final implant chosen was a Accolade II size 5 with a 127-neck angle. This was impacted into the femoral canal without difficulty. This fit was excellent with appropriate anteversion. A 36 +0 Biolox delta ceramic V40 femoral head was chosen, this was impacted onto the femoral neck. The lesser troch to center of the femoral head measured 62 mm. The hip was reduced and taken through range of motion. The hip was stable in all positions. The wound was copiously irrigated with sterile saline. Previously tagged tendons and capsule were reapproximated to the posterolateral femur. Lateral fascial layer was closed using interrupted #1 Vicryls. The rest of the incision was closed in a layered fashion using 0 and 2-0 Vicryls. The skin was closed using running 3-0 Monocryl and Dermabond. Sterile Adaptic 4x4s and paper tape were used to cover the incision. The patient's anesthesia was reversed without difficulty. He was taken to the PACU in stable condition. Intended weightbearing will be weightbearing as tolerated. Intended DVT prophylaxis will be Coumadin with a Lovenox bridge. [id number]/[facility] #: [id number] MAXINE
[2018-02-10] MEDS ORDERED: Enoxaparin(*) 40 MG/0.4 ML SYR SUBCUT SCH (12:00)
[2018-02-10] MEDS: Cyclobenzaprine TAB* 10 MG PO PRN ×2 (13:10→21:55)
--- NOTE | 2018-02-10 14:47 | PN ---
Progress Note - Progress Note Date of Service: 02/10/18 SOAP: Subjective: []Patient seen OOB in chair, doing well. BPs soft but denies dizziness, SOB, CP , palpitations. Hopes to go home tomorrow. Objective: [] Vital Signs Temp 97.9 F 02/10/18 11:26 Pulse 76 02/10/18 11:26 Resp 16 02/10/18 13:10 BP 115/68 02/10/18 11:26 Pulse Ox 98 02/10/18 11:26 Intake & Output 02/09/18 02/10/18 02/10/18 18:59 06:59 18:59 Intake Total 2100 2055 350 Output Total 575 1075 75 Balance 1525 980 275 Weight 175 lb 3.2 oz Intake: IV Fluids 2100 1095 ABX - CEFAZOLIN 55 LR 990 NS 50ML, Cefazolin 2G 50 lr 2100 Oral 960 350 Output: Urine 75 Bower 425 1075 Estimated Blood Loss 150 Other: # Bowel Movements 0 Laboratory Results - last 24 hr 02/10/18 02/10/18 02/10/18 06:02 06:02 06:02 Hgb 11.4 L Hct 34 L Plt Count 267 MPV 8.5 INR (Anticoag Therapy) 1.05 H Sodium 137 Potassium 4.2 Chloride 109 Carbon Dioxide 24 Anion Gap 4 BUN 16 Creatinine 0.79 Est GFR ( Amer) 121.5 Est GFR (Non-Af Amer) 100.4 BUN/Creatinine Ratio 20.3 H Glucose 122 H Calcium 8.5 L left hip dressings dry and intact calf NT and soft +Df left ankle sensation intact ditally Assessment: []s/p left total hip arthroplasty POD #1 Plan: []PT/OT WBAT LLE Eliquis 2.5 mg BID for DVT prophylaxis x 30 days post op Probable discharge home tomorrow follow up in 10-[address] Mayorga
[2018-02-10] MEDS: Nicotine PATCH 21 MG/24 HR* PATCH TRANSDERM SCH ×2 (17:20→23:27)
[2018-02-10] MEDS: rOPINIRole TAB* 1 MG PO SCH (19:38)
[2018-02-10] MEDS ORDERED: Nicotine Patch Removal NOTE PATCH OFF SCH (23:00)
[2018-02-11 05:22] LABS: Hematocrit 31 % (42-52); Hemoglobin 10.3 g/dl (14.0-18.0); Platelet Count 245 10^3/ul (150-450)
[2018-02-11 05:32] LABS: INR 1.12 (0.77-1.02)
[2018-02-11] MEDS: Acetaminophen TAB* 325 MG PO SCH ×2 (05:42→08:31)
[2018-02-11] MEDS: Apixaban* 2.5 MG TAB PO SCH (08:30)
[2018-02-11] MEDS: Docusate CAP* 100 MG PO SCH (08:30)
[2018-02-11] MEDS: Magnesium Hydroxide LIQ* 30 ML UDC PO SCH ×2 (08:31→08:34)
[2018-02-11] MEDS: Cyclobenzaprine TAB* 10 MG PO PRN (09:08)
--- NOTE | 2018-02-11 10:54 | PN ---
Progress Note - Progress Note Date of Service: 02/11/18 SOAP: Subjective: Pt seen and examined in chair. Pain well controlled. Doing well. Denies CP, SOB. Vital Signs: Temp Pulse Resp BP Pulse Ox 97.9 F 87 16 114/76 95 02/11/18 04:38 02/11/18 04:38 02/11/18 09:08 02/11/18 04:38 02/11/18 04:38 Laboratory Last Values Hgb 10.3 g/dl (14.0-18.0) L 02/11/18 05:15 Hct 31 % (42-52) L 02/11/18 05:15 Plt Count 245 10^3/ul (150-450) 02/11/18 05:15 MPV 8.0 fL (7.4-10.4) 02/11/18 05:15 INR (Anticoag Therapy) 1.12 (0.77-1.02) H 02/11/18 05:15 Sodium 137 mmol/L (135-145) 02/10/18 06:02 Potassium 4.2 mmol/L (3.5-5.0) 02/10/18 06:02 Chloride 109 mmol/L (101-111) 02/10/18 06:02 Carbon Dioxide 24 mmol/L (22-32) 02/10/18 06:02 Anion Gap 4 mmol/L (2-11) 02/10/18 06:02 BUN 16 mg/dL (6-24) 02/10/18 06:02 Creatinine 0.79 mg/dL (0.67-1.17) 02/10/18 06:02 Est GFR ( Amer) 121.5 (>60) 02/10/18 06:02 Est GFR (Non-Af Amer) 100.4 (>60) 02/10/18 06:02 BUN/Creatinine Ratio 20.3 (8-20) H 02/10/18 06:02 Glucose 122 mg/dL (70-100) H 02/10/18 06:02 Calcium 8.5 mg/dL (8.6-10.3) L 02/10/18 06:02 Objective: Dressing C/D/I. Calves soft, nontender. No edema. Sensation intact to light touch distally. 2+ DP Assessment: 57 yo male s/p Left MAUDE POD #2 Plan: OOB PT/OT WBAT Pain control DVT Prophylaxis - Eliquis 2.5mg BID D/C home today
[2018-02-11 12:29] VITALS: BP 116/72
[2018-02-11] MEDS ORDERED: Nicotine Patch Removal NOTE PATCH OFF SCH (17:00)
== END 2018-02-11 13:30 | disposition home or self-care (01) | DRG 301 ==
LOC: AA 12:14 → SSU 16:20
PROVIDERS: ADMIT Orthopaedic Surgery Adult Reconstructive Orthopaedic Surgery; ATTEND Orthopaedic Surgery Adult Reconstructive Orthopaedic Surgery
PROC: 0SRB04A Replacement of Left Hip Joint with Ceramic on Polyethylene Synthetic Substitute, Uncemented, Open Approach (ICD-10-PCS; principal; 2018-02-09 15:00)
DX: M16.12 Unilateral primary osteoarthritis, left hip (principal); Z96.641 Presence of right artificial hip joint; G25.81 Restless legs syndrome; F17.210 Nicotine dependence, cigarettes, uncomplicated; Z85.828 Personal history of other malignant neoplasm of skin; Z79.899 Other long term (current) drug therapy; Z80.1 Family history of malignant neoplasm of trachea, bronchus and lung
CPT/HCPCS: 36415; 72170; 80048; 85014; 85018; 85049; 85610; 88304; 88311; A9270-GY; C1713; C1776; J0690; J1100; J1650; J2250; J2405; J2704; J2795; J3010